=== PATIENT | male | born 1980 | race Caucasian/White ===

== ENCOUNTER 2023-03-14 15:33 | Outpatient (OUT) | payer OTHER, SELFPAY ==
--- NOTE | 2023-03-14 15:51 | XR_ITS ---
The [place] [id number] Patient Name: CASSIUS RAMOS MRN: [id number] date: 1980 Sex: M Assigned Patient Location: [facility] Current Patient Location: [facility] Accession/Order Number: [id number] Exam Date: 03/14/2023 15:37 Report Date: 03/14/2023 17:24 At the request of: BONNIE GEE Procedure: XR lumbar spine 2-3V EXAMINATION: XR lumbar spine 2-3V HISTORY: Lumbar Radiculopathy, M54.16 COMPARISON: No relevant comparison available. FINDINGS: BONES: No acute fracture or spondylolisthesis. Degenerative spondylosis and facet osteoarthropathy DISC SPACES: Normal. No significant disc height narrowing, subluxation, or endplate abnormality. PARASPINOUS: Negative. No paraspinous abnormality is seen. OTHER: Negative. IMPRESSION: Moderate degenerative changes Electronically authenticated by: VENKATESH DRAPER Date: 03/14/2023 17:24
--- NOTE | 2023-03-14 15:51 | XR_ITS ---
The [address] [address] Patient Name: CASSIUS RAMOS MRN: [id number] date: 1980 Sex: M Assigned Patient Location: RAD Current Patient Location: [facility] Accession/Order Number: [id number] Exam Date: 03/14/2023 15:37 Report Date: 03/14/2023 17:26 At the request of: BONNIE GEE Procedure: XR hip LT 2V w/ pelvis PROCEDURE: XR hip LT 2V w/ pelvis COMPARISON: None. HISTORY: Lumbar Radiculopathy, M54.16 FINDINGS: BONES:No acute fracture or dislocation. Marginal osteophyte formation along the lateral acetabulum SOFT TISSUES:Negative. No visible soft tissue swelling. EFFUSION:None visible. OTHER: Negative. IMPRESSION: Marginal osteophyte formation lateral left acetabulum Electronically authenticated by: VENKATESH DRAPER Date: 03/14/2023 17:26
== END 2023-03-14 15:34 ==
LOC: RAD 15:34
PROVIDERS: PCP Family Medicine; Visit Provider Family Medicine
DX: M47.26 Other spondylosis with radiculopathy, lumbar region (principal); M25.752 Osteophyte, left hip
CPT/HCPCS: 72100; 73502

== ENCOUNTER 2023-03-24 07:43 | Day surgery (SDC) | payer OTHER, SELFPAY ==
--- NOTE | 2023-03-24 07:45 | FL_ITS ---
[address] [address] Patient Name: CASSIUS RAMOS MRN: [id number] date: 1980 Sex: M Assigned Patient Location: [place] Current Patient Location: [place] Accession/Order Number: [id number] Exam Date: 03/24/2023 08:25 Report Date: 03/24/2023 09:17 At the request of: BONNIE GEE Procedure: FL hip inj LT EXAMINATION: FL hip inj LT HISTORY: left hip pain COMPARISON: No relevant comparison available. TECHNIQUE: A joint injection was performed in the usual sterile manner after obtaining informed consent. Standard level fluoroscopic mode of operation utilized. FINDINGS: JOINT: Left hip. NEEDLE: 22 gauge, 3.5 spinal needle. MEDICATION: 5cc buffered 1% lidocaine for subcutaneous anesthesia 2cc Omnipaque-300 iodinated contrast to visualize the joint space Mixture of Kenalog 40 mg, 0.5% Bupivacaine 2 mL and Omnipaque 300 10mL was injected into the joint space. TECHNIQUE: Anterior approach with prior localization of the femoral artery. A single stick was successful in gaining access to the joint space. CLINICAL: 0 out of 10 pain before and after the procedure COMPLICATIONS: None. OTHER: Negative. IMPRESSION: Technically successful left hip therapeutic arthrogram Electronically authenticated by: VENKATESH DRAPER Date: 03/24/2023 09:17
[2023-03-24] MEDS: BUPIVACAINE HCL 0.5% PF 50 MG/10 ML VIAL 2 ML INJ (08:30)
[2023-03-24] MEDS: TRIAMCINOLONE ACETONIDE 40 MG/ML VIAL INJ (08:30)
[2023-03-24] MEDS: LIDOCAINE HCL 10 ML, SODIUM BICARBONATE 1 MEQ INJ (08:30)
== END 2023-03-24 09:00 | disposition home or self-care (01) ==
LOC: FL 07:43
PROVIDERS: Radiology Diagnostic Radiology; PCP Family Medicine; Visit Provider Family Medicine
DX: M25.552 Pain in left hip (principal)
CPT/HCPCS: 20610; 77002; Q9967

== ENCOUNTER 2025-09-24 09:04 | Outpatient (OUT) | payer BC, SELFPAY ==
--- OUTSIDE RECORDS SUMMARY | 2025-09-23 04:30 | XMS_ITS ---
Author Organization The [facility] in [place] Address [address] [place] [address] Care Team Providers Care Epidemiology Intern Name Role Phone Aayush Garcia Primary Care Provider Allergies No Known Allergies REASON FOR VISIT Presents to office alone for yearly wellness Medications Medication SIG (Take, Route, Frequency, Duration) Notes Start Date End Date Status Triamcinolone Acetonide 0.1 % 1 application Exte rnally bid 5Active Social History Tobacco Use: Social History Observation Description Date Details (start date - stop date) Former Smoker NA - 02/26/2013 Tobacco Use/Smoking Question Answer Notes Patient is a former smoker When did you stop smoking?02/26/2013How long has it been since you last smoked? 5-10 yearsAUDIT-C (Standard) Question Answer Notes Did you have a drink containing alcohol in the p ast year? Yes How often did you have six or more drinks on one occasion in the past year?Less than monthly (1 point)How many drinks did you have on a typical day when you were drinking in the past year?3 or 4 drinks (1 point)How often did you have a drink containing alcohol in the past year?2 to 4 times a month (2 points)Points4 InterpretationPositive Problems Problem Type SNOMED Code ICD Code Onset Dates Problem Status W/U Status Risk Notes Problem Well adult (603179783) Well adult (Z00.00 ) Activeconfirmed Vital Signs Weight 211.6 lbs 09/23/2025 Height 71 in 09/23/2025 Blood pressure systolic 132 mm Hg 09/23/20 25 Blood pressure diastolic 82 mm Hg 025 BMI 29.51 kg/m2 09/23/2025 Procedures Procedure Date Ordered Date Performed Result Body Sit e Sleep study - Diagnostic Polysonogram 09/23/2025 N/A Encounters Encounter Location Date Provider Diagnosis [facility] [address] [place] [address] 09/23/2025 Aayush Garcia Well adult Z00.00 ; Eczema L30.9 and Snoring R06.83 Assessments Encounter Date Diagnosis (ICD Code) Assessment Notes Treatment Notes Treatment Clinical Notes Section Notes 09/23/2025 Well adult (ICD-10 - Z00.00) 09/23/2025Eczema (ICD-10 - L30.9)treating - f not betete r- needs biopsy 09/23/2025Snoring (ICD-10 - R06.83)witnesed apnea, daytime fatigue Plan Of Treatment Medication Medication Name Sig Start Date Stop Date Notes Triamcinolone Acetonide 0.1 % 1 application Externally bid 09/23/2025 Treatment Notes Assessment Notes Eczema treating - f not bet ete r- needs biopsy Snoring witnesed apnea, dayt lolis fatigue Pending Test Test Name Order Date HEMOGLOBIN A1C (GLYCO) 09/23/2025 LIPID PANEL (CHOL/TRIG/HDL/LDL) 09/23/20 25 Sleep study - Diagnostic Polysonogram STOOL OCCULT BLOOD 09/23/2025 THYROID PANEL (T4/TSH/FREE T3) PSA, SCREENING 09/23/2025 CMP (COMP MET ZULUAGA) w/eGFR CKD-EPI 2024 CBC WITH DIFF 09/23/2025 Progress Notes * Huang RAMOS WDOB: [birth year] (45 yo M)Acc No.[id number]:09/23/2025 UNLOCKED PROGRESS NOTE Progress Note Patient: Amy PAYNEet W :?Domenic KayeGina Jose ([facility]), MDDOB:1980???Age: 45 Y???Sex:MaleDate:09/23/2025Phone:[phone]:[id number] [place], [id number] In:09:18 AM Haresh Out:10:02 AM EST Subjective: * Chief Complaints: * 1 . Presents to office alone for yearly wellness. * HPI: ???General:? back pain pretty well controlle SAT _ not bad this tme of year. * ROS: ???EENT:?hearing changes?denies.?visual changes?denies. non-healing mouth sores?denies.?swollen glands or neck lumps?denies.?hoarseness?denies.?sore throat?denies.?difficulty swallowing?denies.?nose bleeds?denies.?nasal congestion?denies.?ear ache?denies.?ear discharge denies.?ringing in ears?denies.?light sensitivity?denies.?eye pain?denies.?blurring?denies.?eye irritation?denies.?double vision?denies. vision loss?denies.?General/Constitutional:?Sweats:?Denies.?Fatigue?denies.?Sleep proble ms?denies.?Anorexia?denies.?Malaise?denies.?Weight loss?denies. Fatigue or Weakness?denies.?Fever or Chills?denies.?Cardiovascular:?Shortness of Breath w/lying flat?denies.?Lightheadedne ss/dizziness?denies.?Chest tightness/ heavy pressure?denies.?Swelling of legs, a nkles, or feet?denies.?Waking up with shortness of breath?denies.?Chest pain&#16 0;denies.?Palpitations?denies.?Weight gain?denies.?Respiratory:?Chronic or frequent cough?denies.?Coughing up blood&#1 60;denies.?Difficulty breathing?denies.?Productive cough?denies.?Snoring&#1 60;denies.?Shortness of breath that awakens from sleep (PND)?denies.?Chest pain? denies.?Sputum production?denies.?Wheezing?denies.?Musculoskeletal:?Joint pain?denies.?Joint Fluid?denies.?Backpain?denies.?Knee pain?denies.?Neck pain?denies.?Joint Stiffness?denies.?Muscle cramps?denies.?Weakness of muscles?denies.?Arthritis?denies.?Muscle aches?denies.?Pain in shoulder(s)?denies.?Swollen joints?denies.? * Medical History: B ell palsy, Lumbar spondylosis, Lumbar radiculopathy, Lumbar disc disease, Seasonal allergic rhinitis. * Family History: F ather: alive 67 yrs. M other: alive 70 yrs, breast cancer, diagnosed with Cancer. B rother(s): alive. S ister(s): alive. S on(s): alive. D tyrese(s): alive. 3 brother(s) , 1 sister(s) - healthy. 2 son(s) , 1 daughter(s) . . * Social History: ???Tobacco Use:?Tobacco Use/Smoking?Patient is a?former smoker ?When did you stop smoking??02/26/2013 ?How long has it been since you last smoked? 5-10 years ???Drug/Alcohol:?AUDIT-C (Standard)?Did you have a drink containing alcohol in the past year??Yes ?How often did you have six or more drinks on one occasion in the past year??Less than monthly (1 point) ?How many drinks did you have on a typical daywhen you were drinking in the past year??3 or 4 drinks (1 point) ?How often did you have a drink containing alcohol in the past year??2 to 4 times a month (2 points) ?Points?4 ?Interpretation?Positive * Medications: D iscontinued Amoxicillin-Pot Clavulanate 875-125 MG Tablet 1 tablet Orally every 12 hrs , Discontinued Azelastine-Fluticasone 137-50 MCG/ACT Suspension 1 spray in each nostril Nasally Twice a day , Medication List reviewed and reconciled with the patient * Allergies: N .K.D.A. Objective: * Vitals: W t:211.6lbs, Ht: 71 in, BP:132/82mm Hg, BMI:29.51Index, Ht-cm: 180.34 cm, Wt-k.98 kg. * Examination: ???Physical Exam: ?GENERAL:?well developed, well nourished, in no acute distress.?HEAD:?normocephalic/atraumatic.?EYES:?pupils equal, round and reactive to light, conjunctivae and sclerae normal.?EARS:?no deformity or lesion of external ear, canals and TM appear normal bilaterally, TM's intact, not inflamed with normal light reflex, hearing grossly normal to conversational speech.?NOSE:?no deformity, discharge, inflammation, or lesions. ?MOUTH:?mucous membranes moist, normal oropharynx and posterior pharynx without lesions or exudates, tongue normal, dentition normal.?NECK:?neck supple, no masses or palpable cervical nodes, trachea midline, thyroid without nodules, masses, tenderness, or enlargement.?CHEST:?no chest wall deformity, no chest wall tenderness. ?LUNGS:?normal respiratory effort and clear to auscultation, no wheezes, rales, or rhonchi, good air exchange.?CARDIO:?regular rate and rhythm, normal S1 and S2, nor murmur, rub, or gallop.?PULSES:?normal capillary refill.?ABDOMEN:?soft, non-distended, non-tender, no masses.?MUSCULOSKELETAL:?no deformity or scoliosis noted, normal range of motion, joints normal, no erythema, edema, effusion, or ecchymosis.?EXTREMITY:?no clubbing, cyanosis, edema, or deformity withnormal ROM in both upper and lower bilateral extremities.?NEUROLOGIC:?grossly normal.?SKIN:?no rashes, ulcerations, or suspicious lesions.?LYMPH NODES:?no cervical adenopathy, nodes normal.?MENTAL STATUS:?alert and oriented x3, normal mood and affect.? Assessment: * Assessment: 1.?Well adult - Z00.00 (Primary)???2.?Eczema - L30.9???3. Snoring - R06.83??? Plan: * Treatment: ?LAB: HEMOGLOBIN A1C (GLYCO) ?LAB: LIPID PANEL (CHOL/TRIG/HDL/LDL) ?LAB: STOOL OCCULT BLOOD ?LAB: THYROID PANEL (T4/TSH/FREE T3) ?LAB: PSA, SCREENING ?LAB: CMP (COMP MET ZULUAGA) w/eGFR CKD-EPI ?LAB: CBC WITH DIFF2.?Eczema? Notes: treating - f not betete r- needs biopsy??3.?Snoring? Start Triamcinolone Acetonide Cream, 0.1 %, 1 application, Externally, bid, 60 grams, Refills 11. ?Procedure: Sleep study - Diagnostic Polysonogram Notes: witnesed apnea, daytime fatigue?? * Preventive Medicine: ??Screenings/Counseling:?BMI ACTION PLAN?Above Normal BMI Follow-up?Dietary management education, guidance, and counseling See treatment section of progress note for complete details of management plan. * * Electronic signature of Aayush Garcia MD, [phone] on 09/24/2025 at 09:08 AM EST Sign off status: PendingVisit Status:?CHK (Check Out) * Provider: Pratik Garcia ([facility])MD Date: 1 11/24/2024 Generated for Printing/Faxing/eTransmitting on:?09/24/2025 09:08 AM EST History and Physical Notes * HPI (History of Present Illness) CategorySub-CategoryDetailNotesCategory NotesGeneral back pain pretty well controlle SAT _ not bad this tme of year Examination CategorySub-CategoryDetailNotesCategory NotesPhysical ExamGENERAL:well developed, well nourished, in no acute distressHEAD:normocephalic/atraumatic EYES:pupils equal, round and reactive to light, conjunctivae and sclerae normal EARS:no deformity or lesion of external ear, canals and TM appear normal bilaterally, TM's intact, not inflamed with normal light reflex, hearing grossly normal to conversational speechNOSE:no deformity, discharge, inflammation, or lesionsMOUTH:mucous membranes moist, normal oropharynx and posterior pharynx without lesions or exudates, tonguenormal, dentition normalNECK:neck supple, no masses or palpable cervical nodes, trachea midline, thyroid without nodules, masses, tenderness, or enlargementCHEST:no chest wall deformity, no chest wall tendernessLUNGS:normal respiratory effort and clear to auscultation, no wheezes, rales, or rhonchi, good air exchangeCARDIO:regular rate and rhythm, normal S1 and S2, nor murmur, rub, or gallopPULSES:normal capillary refillABDOMEN:soft, non-distended, non-tender, no massesRECTAL:MUSCULOSKELETAL:no deformity or scoliosis noted, normal range of motion, joints normal, no erythema, edema, effusion, or ecchymosisEXTREMITY:no clubbing, cyanosis, edema, or deformity with normal ROM in both upper and lower bilateral extremitiesNEUROLOGIC:grossly normalSKIN:no rashes, ulcerations, or suspicious lesionsLYMPH NODES:no cervical adenopathy, nodes normalMENTAL STATUS:alert and oriented x3, normal mood and affect
--- OUTSIDE RECORDS SUMMARY | 2025-09-24 09:08 | XMS_ITS | Patient Health Record ---
Author Organization The [facility] in [place] Address [address] [place] [address] Care Team Providers Care Correction Warden Name Role Phone Aayush Garcia Primary Care Provider Allergies No Known Allergies Reason For Referral No Information Medications Medication SIG (Take, Route, Frequency, Duration) [...] Problem Status W/U Status Risk Notes Problem Lumbar spondylosis (620163552) Lumbar spo ndylosis (721.3) ActiveconfirmedProblemLumbar radiculopathy (900103130)Lumbar radiculopathy (M54.16)ActiveconfirmedProblemAcute sinusitis (65874677)Acute sinusitis (J01.90) ActiveconfirmedProblemDisorder of lumbar disc (042581961)Lumbar disc disease (M51.9)ActiveconfirmedProblemWell adult (371657023)Well adult (Z00.00)Active confirmedProblemSeasonal allergic rhinitis (652591682)Seasonal allergic rhinitis (J30.2)Activeconfirmed Vital Signs Temperature 97.4 degrees Fahrenheit 11/25/2024 Blood pressure vqokllevi59 mm Hg09/23/20255448Suowwk53 in09/23/2025lood pressure ualloesy310 mm Hg09/23/20257150Dkkevg971.6 lbs111/24/2024BMI29.51 kg/m209/23/2025 Procedures Procedure Date Ordered Date Performed Result Body Sit e Sleep study - Diagnostic Polysonogram 09/23/2025 N/A Encounters Encounter Location Date Provider Diagnosis [address] [address] 11/25/2024 Aayush Garcia Acute non-recurrent sinusitis, unspecified location J01.90 and Nasal congestion R09.[address] [address] 09/23/2025 Aayush Garcia Well adult Z00.00 ; Eczema L30.9 and Snoring R06.[address] [address] 04/25/2025 Aayush Garcia Assessments Encounter Date Diagnosis (ICD Code) Assessment Notes Treatment Notes Treatment Clinical Notes Section Notes 11/25/2024 Acute non-recurrent sinusitis, unspecified location (ICD-10 - J01.90) Rest and drink more liquids, especially water. You may use a humidifier or vaporizer to help keep the drainage moist. Ltsj-soc-kedebwi Nasal Saline may help the stuffy and runny nose. Use Ibuprofen and or Tylenol as needed for fever, chills, body aches or pain. Children 5 years old should not be given levj-iax-nvrwckv cough and cold medications such as guaifenesin and dextromethorphan. If you're over age 5, you may try tgmj-hdj-szjdgbg cold medications such as guaifenesin and dextromethorphan, or multi-symptom cold reliever such as Dayquil to help reduce the symptoms. Antibiotics have been pre scribed. You should take these until completed and follow the directions. Antibiotics can sometimescause upset stomach, and in rare cases, serious allergic reactions or serious gastrointestinal problems. If you start having severe abdominal pain, severe vomiting, or bloody diarrhea, you should be r eevaluated by your physician or urgent care immediately. Follow up with your Primary Care Provider or return to clinic if symptoms do not improve within 3-5 days09/23/2025Well adult (ICD-10 - Z00.00)09/23/2025Eczema (ICD-10 - L30.9) treating - f not betete r- needs zyvpkr4809/23/2025Snoring (ICD-10 - R06.83) witnesed apnea, daytime mkglaxu6211/25/2024Nasal congestion (ICD-10 - R09.81) Plan Of Treatment Pending Test Test Name Order Date HEMOGLOBIN A1C (GLYCO) 09/23/2025 LIPID PANEL (CHOL/TRIG/HDL/LDL) 09/23/20 25 XR Lumbar Spine (2-3 views) * 03/12/2023 Sleep study - Diagnostic Polysonogram STOOL OCCULT BLOOD 09/23/2025 THYROID PANEL (T4/TSH/FREE T3) 5 XR HIP LT 2 3V W PELVIS 03/12/2023 PSA, SCREENING 09/23/2025 CMP (COMP MET ZULUAGA) w/eGFR CKD-EPI 2024 CBC WITH DIFF 09/23/2025 Insurance Providers Payer Name Payer Address Payer Phone Subscriber Number Group Number Insured Name Patient Relationship to Insured Coverage Start Date Coverage End Date [employer] PPO PLUS LOCAL PLAN [address] [place] [address] [id number] Marvin Verma - patient is the spouse of the insured Medications Administered Medication Instructions Date of Administration Dosage Notes Kenalog-40 zh720Smidcbw-8678/29/2024120 gq812Rhfzteyvj Utorfdulnyun34/09/2023 60 mgKetorolac Coggatghrcxu34/14/202360 wt19Hecjciaib Nbvlckcdevjc62/29/202460 my77Ldznfnvshtvf Aljzgjz73 mgOrphenadrine Jdigvfc16 mg60 Orphenadrine Fsdnrtx43 mg60 Medical (General) History Medical History History ICD Code Harry palsy G51.0 Lumbar spondylosis 721.3 Lumbar radiculopathy M54.16 Lumbar disc disease M51.9 Seasonal allergic rhinitis J30.2
[2025-09-24 09:33] LABS: Hematocrit 47.3 % (42.0-54.0); Hemoglobin 16.8 g/dL (14.0-18.0); Immature Granulocytes Abs Auto 0.02 10^3/uL (0.00-0.03); Immature Granulocytes Pct Auto 0.4 % (0.0-0.5); Lymphocytes Absolute Auto 2.3 10^3/uL (1.2-3.8); Mean Corpuscular HGB Conc 35.5 g/dL (29.9-35.2); Mean Corpuscular Hemoglobin 32.3 pg (25.9-34.0); Mean Corpuscular Volume 91.0 fL (80.0-94.0); Platelet Count 209 10^3/uL (150-450); Red Blood Count 5.20 10^6/uL (4.70-6.10); White Blood Count 5.7 10^3/uL (4.0-11.0)
[2025-09-24 11:33] LABS: Alanine Aminotransferase 49 U/L (16-63); Albumin Globulin Ratio 1.0; Albumin Level 4.0 g/dL (3.4-5.0); Alkaline Phosphatase 78 U/L (46-116); Anion Gap 13.3; Aspartate Amino Transferase 25 U/L (15-37); Blood Urea Nitrogen 12.0 mg/dL (7.0-18.0); Calcium 8.9 mg/dL (8.5-10.1); Carbon Dioxide 28.9 mmol/L (21.0-32.0); Chloride 103 mmol/L (98-107); Cholesterol 315 mg/dL (<=200); Estimated GFR (African America >60 (>=60 mL/min/1.73m^2); Estimated GFR (Non-African Ame >60 (>=60 mL/min/1.73m^2); Free T3 3.50 pg/mL (2.18-3.98); Globulin 4.0 g/dL; Glucose 91 mg/dL (74-106); HDL Cholesterol 54 mg/dL (40-60); Potassium 4.2 mmol/L (3.5-5.1); Sodium 141 mmol/L (136-145); Thyroid Stimulating Hormone 0.804 uIU/mL (0.358-3.740); Total Protein 8.0 g/dL (6.4-8.2); Triglycerides 692 mg/dL (<=150); VLDL CHOLESTEROL 138.4 mg/dL
== END 2025-09-24 09:05 | disposition home or self-care (01) ==
LOC: LAB 09:05
PROVIDERS: PCP Family Medicine; Visit Provider Family Medicine
DX: Z00.00 Encounter for general adult medical examination without abnormal findings (principal); Z12.5 Encounter for screening for malignant neoplasm of prostate
CPT/HCPCS: 36415; 80053; 80061; 83036; 83721; 84436; 84443; 84481; 85025; G0103